=== PATIENT | female | born 1965 | race Two or more races ===

== ENCOUNTER 2019-08-27 07:20 | Emergency (ER) | payer MEDICARE, OTHER, MEDICAID ==
[~2019-08-27] VITALS: Ht 167.6 cm; Wt 91.0 kg
[2019-08-27] MEDS ORDERED: LURA120T PO (07:28)
[2019-08-27 08:41] LABS: CLARITY URINE TURBID (CLEAR); COLOR URINE DARK YELLOW (YELLOW); KETONES URINE NEGATIVE (NEGATIVE); LEUKOCYTE ESTERASE URINE 3+ (NEGATIVE); NITRITE URINE POSITIVE (NEGATIVE); OCCULT BLOOD URINE 2+ (NEGATIVE); PH URINE 5.5 (4.5-8.0); PROTEIN URINE 1+ (NEGATIVE); UROBILINOGEN URINE 0.2 E.U./dL (0.2-1.0)
[2019-08-27] MEDS ORDERED: ACETAMINOPHEN 325MG TABLET PO ONE (08:45)
[2019-08-27 10:05] VITALS: BP 140/95
== END 2019-08-27 10:05 | disposition home or self-care (01) ==
LOC: ER 07:20
DX: N39.0 Urinary tract infection, site not specified (principal); M54.5 Low back pain; G62.9 Polyneuropathy, unspecified; F43.10 Post-traumatic stress disorder, unspecified; Z88.0 Allergy status to penicillin; Z88.6 Allergy status to analgesic agent
CPT/HCPCS: 81003; 81025; 87077; 87186; 99283